=== PATIENT | female | born 1965 | race Caucasian/White ===

== ENCOUNTER → 2017-02-27 | Outpatient (CLI) | payer BC | LOC: SLEEP 21:30 | DX: G47.33 Obstructive sleep apnea (adult) (pediatric) (principal) | CPT/HCPCS: 95810 ==

== ENCOUNTER 2020-11-30 08:59 | Emergency (ER) | payer BC ==
[~2020-11-30 08:59] MED LIST: CLINDAMYCIN HC300 MG PO; LISINOPRIL-HCT1 EAC1 PO; TYLENOL WITH C1 EACH PO
[2020-11-30] MEDS ORDERED: IBUPROFEN600 MG PO (10:20)
[2020-11-30] MEDS ORDERED: CYCLOBENZAPRINE10 MG PO (10:20)
== END 2020-11-30 12:54 | disposition home or self-care (01) ==
LOC: ER1 08:59
DX: S76.312A Strain of muscle, fascia and tendon of the posterior muscle group at thigh level, left thigh, initial encounter (principal); I10 Essential (primary) hypertension; Z88.0 Allergy status to penicillin; Z88.1 Allergy status to other antibiotic agents; Z88.2 Allergy status to sulfonamides; W01.0XXA Fall on same level from slipping, tripping and stumbling without subsequent striking against object, initial encounter; Y92.89 Other specified places as the place of occurrence of the external cause; Y99.0 Civilian activity done for income or pay
CPT/HCPCS: 96372; 99283; J1885